=== PATIENT | male | born 1980 | race Caucasian/White ===

== ENCOUNTER 2024-02-06 16:00 | Outpatient (CLI) | payer OTHER, SELFPAY ==
--- NOTE | ~2024-02-06 | XR_ITS ---
XR hand RT min 3V Ordering provider: Robert Neumann APRN History: . S69.91XA - Unspecified injury of right wrist, hand and fi... . Comparison: None. FINDINGS: BONES: Boxers fracture is seen in the distal metaphysis of the fifth metacarpal bone with angulation. No other fractures seen. Small cystic area seen in the lunate bone. JOINT SPACES: Normal. SOFT TISSUES: Soft tissue swelling seen near to the fifth metacarpal bone. IMPRESSION: Fracture in the distal metaphysis of the fifth metacarpal bone. Reviewed, dictated and finalized at location A. 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
== END 2024-02-06 16:01 | disposition home or self-care (01) ==
LOC: GOSHIMG 16:02
PROVIDERS: PCP Family Medicine; Visit Provider Student in an Organized Health Care Education/Training Program
DX: S62.396A Other fracture of fifth metacarpal bone, right hand, initial encounter for closed fracture (principal); X58.XXXA Exposure to other specified factors, initial encounter
CPT/HCPCS: 73130

== ENCOUNTER 2024-02-07 09:44 | Emergency (ER) | payer OTHER, SELFPAY ==
[2024-02-07 09:54] VITALS: BP 157/81; PULSE 79; RESP 18; TEMP 36.8; O2SAT 100
--- NOTE | 2024-02-07 09:54 | ED_ITS ---
HPI - Extremity Injury (Upper) General Chief Complaint: Extremity Injury, Upper Stated Complaint: broken bone in R hand Time Seen by Provider: 02/07/24 09:49 Source: patient Mode of arrival: ambulatory Limitations: no limitations History of Present Illness HPI narrative: This is a 42-year-old male that presents to the emergency department for a hand fracture noted on outpatient imaging. Sustain an injury a couple of days ago. He got his hand pinned between a jet ski and a lift. Reports pain and decreased range of motion in the right 5th finger. Had an x-ray ordered by his primary provider. This showed a 5th metacarpal fracture. He was sent to the ER for further management. Related Data Home Medications Medication Instructions Recorded Confirmed No Home Medications 02/06/24 02/06/24 Allergies Allergy/AdvReac Type Severity Reaction Status Date / Time No Known Allergies Allergy Verified 02/07/24 09:45 Review of Systems Review of Systems: CONSTITUTIONAL: Denies fever MUSCULOSKELETAL: Reports joint pain, and myalgia. NEUROLOGIC: Denies numbness, or weakness. All systems reviewed & are unremarkable except as noted in HPI and below PMFSH Past Medical History Medical History (Updated 02/07/24 @ 10:03 by Anisa Mario PA-C) Normal echocardiogram 12.12.19/[facility] Family History Family History Father Hypertension Father Hypertension Colon polyp Mother Hypertension Grandparent Carcinoma of colon Social History Social History (Updated 02/06/24 @ 15:24 by Tara Jones CMA) Smoking status: Former smoker Smoking end date: 03/28/20 Alcohol intake: current Substance use: never Substance use type: does not use Lack of Transportation: No Lack of Food: Never True Current Housing: I Have Housing Concerned About Future Housing: No Difficulty Paying Gas/Electric Bills: No Difficulty Paying for Meds: No Currently Unemployed: No Education: Associate Degree Exam Narrative: GENERAL: Well-appearing, well-nourished, and in no acute distress. HEAD: Normocephalic, atraumatic. EYES: EOMI. EXTREMITIES: Normal range of motion, except decreased ROM in the right 5th fi nger. Mild edema and bruising to the right hand dorsal surface. Normal radial pulse. Normal sensation SKIN: Warm, dry, no rash. NEURO: No focal deficits. Alert and oriented x3. PSYCH: Normal mood and affect Procedures Orthopedic Splinting/Casting Injury #1: Splinting/Casting Date: 02/07/24 Splinting/Casting Time: 09:58 Side: right Upper Extremity Immobilizer: ulnar gutter Splint: customized in ED OCL: ulnar gutter Pre-Procedure Neuro Vascular Exam: normal Post-Procedure Neuro Vascular Exam: normal MDM - Extremity Injury (Upper) MDM Narrative Medical decision making narrative: Patient presents the emergency department for abnormal outpatient imaging. Showing 5th metacarpal fracture. Patient is neurovascularly intact. Patient placed in an ulnar gutter. Reports he has follow-up with Hand surgery. He was given warnings to return to the ER Differential Diagnosis Differential diagnosis: Likely other (metacarpal fracture) Medical Records Attestation: I reviewed the patient's medical records. Medical records narrative: IMPRESSION: Fracture in the distal metaphysis of the fifth metacarpal bone. Critical Care Time Critical Care Time Critical Care Time: No Discharge Plan Discharge Clinical Impression: Closed fracture of 5th metacarpal Qualifiers: Encounter type: initial encounter Metacarpal location: neck Fracture alignment: nondisplaced Laterality: right Qualified Code(s): S62.366A - Nondisplaced fracture of neck of fifth metacarpal bone, right hand, initial encounter for closed fracture Patient Disposition: Home, Self-Care Condition: Stable Instructions: Hand Fracture (ED) Additional Instructions: Return to the ER if you experience fever, redness and swelling of your extremity, numbness or any other symptoms that are concerning to you Wear splint. No weight on the affected extremity. Ice and elevate extremity. P ain medication as needed and directed. Follow up with hand surgery for further care. Prescriptions: No Action No Home Medications Follow-up/Referrals: Denver Lozano MD [Physician] - Liberty Ocampo MD [Primary Care Provider] -
[2024-02-07 10:18] VITALS: BP 146/86; PULSE 78; RESP 16; TEMP 36.6; O2SAT 100
== END 2024-02-07 10:21 | disposition home or self-care (01) ==
PROVIDERS: Emergency Provider Physician Assistant; PCP Family Medicine
DX: S62.366A Nondisplaced fracture of neck of fifth metacarpal bone, right hand, initial encounter for closed fracture (principal); W24.0XXA Contact with lifting devices, not elsewhere classified, initial encounter
CPT/HCPCS: 29125; 99282

== ENCOUNTER 2024-02-07 14:08 | Outpatient (CLI) | payer OTHER, SELFPAY ==
--- NOTE | ~2024-02-07 | XR_ITS ---
XR hand RT min 3V Ordering provider: Macie Lofton PA-C History: . INJURY TUESDAY/INJURY 5TH METACARPAL . Comparison: February 06, 2024 FINDINGS: BONES: Fracture in the distal metaphysis of the fifth metacarpal bone. Status post placement in a augustin t. JOINT SPACES: Normal. SOFT TISSUES: Normal. IMPRESSION: Fracture in the distal fifth metacarpal bone status post placement in a cast. Reviewed, dictated and finalized at location A. [employer]ICE OWNER
== END 2024-02-07 14:09 | disposition home or self-care (01) ==
PROVIDERS: PCP Family Medicine; Visit Provider Physician Assistant Surgical
DX: S62.396D Other fracture of fifth metacarpal bone, right hand, subsequent encounter for fracture with routine healing (principal); X58.XXXD Exposure to other specified factors, subsequent encounter
CPT/HCPCS: 73130

== ENCOUNTER 2024-07-20 14:49 | Outpatient (CLI) | payer BC, SELFPAY ==
--- NOTE | ~2024-07-20 | XR_ITS ---
XR hip BI 2V w AP pelvis Ordering provider: Liberty Ocampo MD History: . M25.551 - Pain in right hip . Comparison: None. FINDINGS: BONES: No acute fracture or dislocation. HIP JOINT SPACES: Normal. SACROILIAC JOINT SPACES/LUMBAR SPINE: The sacroiliac joint spaces are normal. Normal visualized lower lumbar spine. PUBIC SYMPHYSIS: Normal. SOFT TISSUES: Normal. IMPRESSION: No acute osseous abnormality of the bilateral hips and pelvis. Reviewed, dictated and finalized at location A.
--- NOTE | ~2024-07-20 | XR_ITS ---
3 VIEWS LUMBAR SPINE Ordering provider: Liberty Ocampo MD History: . M54.10 - Radiculopathy, site unspecified . Comparison: None. FINDINGS: VERTEBRAL BODIES: No visible fracture or subluxation. Degenerative changes of the spine. DISK SPACES: Normal. SOFT TISSUES: Normal. IMPRESSION: No acute osseous abnormality lumbar spine. Reviewed, dictated and finalized at location A.
== END 2024-07-20 14:50 | disposition home or self-care (01) ==
PROVIDERS: PCP Family Medicine; Visit Provider Family Medicine
DX: M25.551 Pain in right hip (principal); M54.10 Radiculopathy, site unspecified
CPT/HCPCS: 72110; 73521